=== PATIENT | male | born 1940 | race Caucasian/White ===

== ENCOUNTER 2018-11-23 09:06 | Outpatient (CLI) | payer OTHER | END 2018-11-23 09:20 | disposition home or self-care (01) | LOC: LAB 09:06 | DX: R10.84 Generalized abdominal pain (principal) ==

== ENCOUNTER 2018-11-23 09:59 | Outpatient (CLI) | payer OTHER | END 2018-11-23 10:06 | disposition home or self-care (01) | LOC: TOM 09:59 | DX: R10.84 Generalized abdominal pain (principal) ==

== ENCOUNTER 2022-10-19 07:13 | Outpatient (CLI) | payer OTHER | END 2022-10-19 07:14 | disposition home or self-care (01) | LOC: NUCLEAR 07:13 | PROVIDERS: ATTEND Internal Medicine | DX: I25.9 Chronic ischemic heart disease, unspecified (principal) | CPT/HCPCS: 78452; 93017; A9500; J0153 ==

== ENCOUNTER 2024-12-01 11:44 | Outpatient (CLI) | payer OTHER | END 2024-12-01 12:01 | disposition home or self-care (01) | LOC: MRI 11:44 | PROVIDERS: ATTEND Internal Medicine | DX: I63.89 Other cerebral infarction (principal); I61.0 Nontraumatic intracerebral hemorrhage in hemisphere, subcortical | CPT/HCPCS: 70552; Q9965 ==